=== PATIENT | female | born 1980 | race Caucasian/White ===

== ENCOUNTER 2017-04-15 05:09 | Inpatient (IN) | payer OTHER ==
[~2017-04-15] VITALS: Ht 165.1 cm; Wt 77.2 kg
[~2017-04-15 05:09] MED LIST: DOCU-30 PO; IBUP200T48 PO; OXYC-302 PO; PREN1TAB27 PO
[2017-04-15] MEDS ORDERED: OXYTOCIN 30U/ 0.9% NaCL 500ML 500 ML IV ONE (05:18)
[2017-04-15] MEDS ORDERED: OXYTOCIN 30U/ 0.9% NaCL 500ML 500 ML IV PRN (05:18)
[2017-04-15 05:27] VITALS: BP 139/73
[2017-04-15] MEDS ORDERED: FENTANYL PF 100 MCG/2ML IV PRN (05:30)
[2017-04-15] MEDS ORDERED: FENTANYL PF 100 MCG/2ML IVPush PRN (05:30)
[2017-04-15] MEDS ORDERED: ONDANSETRON 2MG/ML, 2ML IVPush PRN (05:30)
[2017-04-15] MEDS: LACTATED RINGERS 1,000 ML IV SCH ×4 (05:48→14:53)
[2017-04-15] MEDS ORDERED: OXYTOCIN 30U/ 0.9% NaCL 500ML 500 ML ONE ×2 (06:10→19:50)
[2017-04-15] MEDS ORDERED: OXYTOCIN 30U/ 0.9% NaCL 500ML 500 ML IV SCH (08:33)
[2017-04-15] MEDS ORDERED: MAGNESIUM HYDROXIDE 8%, 30ML UDC PO PRN (09:00)
[2017-04-15] MEDS ORDERED: OXYcodone/APAP 5/325MG TABLET PO PRN (09:00)
[2017-04-15] MEDS ORDERED: RHOGAM FROM BLOOD BANK 1 NOTE EA IM/IV ONE (09:00)
[2017-04-15] MEDS ORDERED: ONDANSETRON 2MG/ML, 2ML IV PRN (09:00)
[2017-04-15] MEDS ORDERED: MISOPROSTOL 200 MCG TABLET PR PRN (09:00)
[2017-04-15] MEDS ORDERED: CALCIUM CARBONATE 500 MG TAB.CHEW PO PRN (09:00)
[2017-04-15] MEDS ORDERED: ACETAMINOPHEN 325 MG TABLET PO PRN ×2 (09:00)
[2017-04-15] MEDS ORDERED: FENTANYL/BUPIV./NS/PF 250 ML EPIDCONT ONE (09:25)
[2017-04-15] MEDS ORDERED: BUPIVACAINE 0.25% ONE (09:27)
[2017-04-15] MEDS ORDERED: LIDOCAINE/PF 1.5%-EPI 1:200K, 30ML ONE (09:27)
[2017-04-15] MEDS ORDERED: NEWBORN KIT ONE (09:54)
[2017-04-15] MEDS ORDERED: FENTANYL/BUPIV./NS/PF 250 ML EPIDCONT SCH (11:56)
[2017-04-15] MEDS ORDERED: LACTATED RINGERS 1,000 ML IVBOLUS PRN (12:00)
[2017-04-15] MEDS ORDERED: FENTANYL PF 100 MCG/2ML ONE (18:04)
[2017-04-15] MEDS ORDERED: IBUPROFEN 600 MG TABLET ONE (19:50)
[2017-04-15] MEDS: IBUPROFEN 600 MG TABLET PO PRN (19:54)
[2017-04-15 22:00] VITALS: BP 120/73
[2017-04-15 23:00] VITALS: BP 118/74
[2017-04-16 01:00] VITALS: BP 116/78
[2017-04-16] MEDS: IBUPROFEN 600 MG TABLET PO PRN ×3 (04:40→19:40)
[2017-04-16 04:45] VITALS: BP 114/72
[2017-04-16 07:35] VITALS: BP 122/72
[2017-04-16] MEDS: PRENATAL VIT/IRON/FA 1 EACH TABLET PO SCH ×2 (08:29→09:00)
[2017-04-16] MEDS: DOCUSATE 100 MG CAPSULE PO PRN ×2 (08:29→19:40)
[2017-04-16 12:00] VITALS: BP 118/78
[2017-04-16 15:45] VITALS: BP 130/77
[2017-04-16] MEDS: OXYcodone/APAP 5/325MG TABLET PO PRN (19:40)
[2017-04-16 19:45] VITALS: BP 135/87
[2017-04-17] MEDS: OXYcodone/APAP 5/325MG TABLET PO PRN (06:08)
[2017-04-17] MEDS: IBUPROFEN 600 MG TABLET PO PRN (06:08)
[2017-04-17 06:10] VITALS: BP 132/87
[2017-04-17] MEDS ORDERED: IBUP-1222 PO (13:14)
[2017-04-17] MEDS ORDERED: OXYC-302 PO (13:14)
== END 2017-04-17 15:20 | disposition home or self-care (01) | DRG 775 ==
LOC: LDIP 05:09 → 2NW 21:54
PROVIDERS: ADMIT Obstetrics & Gynecology; ATTEND Obstetrics & Gynecology
PROC: 10E0XZZ Delivery of Products of Conception, External Approach (ICD-10-PCS; principal; 2017-04-15)
PROC: 0KQM0ZZ Repair Perineum Muscle, Open Approach (ICD-10-PCS; 2017-04-15)
PROC: 10907ZC Drainage of Amniotic Fluid, Therapeutic from Products of Conception, Via Natural or Artificial Opening (ICD-10-PCS; 2017-04-15)
PROC: 3E033VJ Introduction of Other Hormone into Peripheral Vein, Percutaneous Approach (ICD-10-PCS; 2017-04-15)
PROC: 00HU33Z Insertion of Infusion Device into Spinal Canal, Percutaneous Approach (ICD-10-PCS; 2017-04-15)
PROC: 3E0R3CZ (ICD-10-PCS; 2017-04-15)
DX: O69.81X0 Labor and delivery complicated by cord around neck, without compression, not applicable or unspecified (principal); Z37.0 Single live birth; Z3A.38 38 weeks gestation of pregnancy; O70.1 Second degree perineal laceration during delivery; Z23 Encounter for immunization
CPT/HCPCS: 36415; 85025; 85461; 86850; 86900; J2790; J3490; J2590; J3010; J7120